=== PATIENT | male | born 1955 | race Caucasian/White ===

== ENCOUNTER 2017-11-23 01:26 | Emergency (ER) | payer OTHER ==
[2017-11-23 01:33] VITALS: BP 175/100
[2017-11-23] MEDS ORDERED: LORazepam 2 MG/ML SDV IVPUSH ONE (02:00)
--- NOTE | 2017-11-23 02:13 | EDM.PDOC ---
ED HPI GENERAL MEDICAL PROBLEM - General Chief Complaint: Chest Pain Stated Complaint: CHEST PAIN Time Seen by Provider: 11/23/17 01:28 Source of Information: Reports: Patient, Family History Limitations: Reports: No Limitations - History of Present Illness INITIAL COMMENTS - FREE TEXT/NARRATIVE: This is a 62-year-old male. He abruptly awoke around 12:30 this morning feeling short of breath and having some chest tightness. He has a history of anxiety reactions and thought he might be having some heart trouble so he comes to the ER for evaluation. He states he forgot to wear his CPAP this evening when he fell asleep. Apparently he's had one anxiety attack this week which is somewhat unusual for him since he hasn't had any for quite some time while he is on the Ativan. When he woke he felt tightness in his chest that seemed to go into the left shoulder but did not go down the arms did not go into the neck or the jaw was. He had no nausea and vomiting he was not sweating. He did take an Ativan 1 mg at home and then comes to the ER. He says he still has some mild tightness in his chest and that he just doesn't feel right. He is no longer short of breath. He does have a history of a recent cough and sinus drainage but denies any ear pain or sore throat. Bilateral Chest Pain Score (Numeric/FACES): 7 - Related Data Allergies Allergy/AdvReac Type Severity Reaction Status Date / Time No Known Allergies Allergy Verified 11/23/17 01:33 Home Meds: Home Meds Allopurinol [Allopurinol] 300 mg PO DAILY 02/25/16 [History] LORazepam [Ativan] 1 mg PO ASDIRECTED PRN 02/25/16 [History] Losartan [Cozaar] 50 mg PO DAILY 02/25/16 [History] Metoprolol Tartrate [Lopressor] 100 mg PO BID 02/25/16 [History] Multivitamin [Multivitamins] 1 cap PO DAILY 02/25/16 [History] Psyllium Husk [Fiber Therapy] 5 cap PO DAILY 02/25/16 [History] Rosuvastatin [Crestor] 5 mg PO BEDTIME 02/25/16 [History] LORazepam [Ativan] 1 mg PO Q8H PRN #15 tablet 11/23/17 [Rx] Past Medical History HEENT History: Reports: Cataract, Impaired Vision Other HEENT History: Wears glasses Cardiovascular History: Reports: High Cholesterol, Hypertension Respiratory History: Reports: Sleep Apnea Genitourinary History: Reports: Renal Calculus Musculoskeletal History: Reports: Gout Psychiatric History: Reports: Anxiety - Past Surgical History HEENT Surgical History: Reports: Cataract Surgery, Other (See Below) Other HEENT Surgeries/Procedures: Deviated spetum Musculoskeletal Surgical History: Reports: Other (See Below) Other Musculoskeletal Surgeries/Procedures:: Herniated disc Social & Family History - Tobacco Use Smoking Status *Q: Never Smoker - Recreational Drug Use Recreational Drug Use: No ED ROS GENERAL - Review of Systems Review Of Systems: See Below Constitutional: Denies: Fever, Chills HEENT: Reports: Sinus Problem Respiratory: Reports: Cough. Denies: Shortness of Breath, Wheezing Cardiovascular: Reports: Chest Pain, Other (He has some chronic slight swelling in his ankles bilaterally by the end of the day) Endocrine: Reports: No Symptoms GI/Abdominal: Denies: Abdominal Pain, Nausea, Vomiting : Reports: No Symptoms Musculoskeletal: Reports: No Symptoms Skin: Reports: No Symptoms Neurological: Reports: No Symptoms Psychiatric: Reports: Anxiety Hematologic/Lymphatic: Reports: No Symptoms ED EXAM, GENERAL - Physical Exam Exam: See Below Exam Limited By: No Limitations General Appearance: Alert, WD/WN, No Apparent Distress Eye Exam: Bilateral Eye: Normal Inspection Ears: Normal External Exam, Normal Canal, Normal TMs Nose: Normal Inspection Throat/Mouth: Normal Inspection, Normal Lips, Normal Voice, No Airway Compromise , Other (Tacky mucous membranes) Head: Normocephalic Neck: Supple Respiratory/Chest: No Respiratory Distress, Lungs Clear, Normal Breath Sounds Cardiovascular: Regular Rate, Rhythm, No Murmur GI/Abdominal: Soft, Non-Tender Back Exam: Full Range of Motion Extremities: Normal Inspection, Normal Range of Motion, Other (He does have some slight swelling in his lower legs and ankles that he states is normal for him by the end of the day). No: No Pedal Edema Neurological: Alert, Oriented. No: Confused Psychiatric: Normal Affect, Normal Mood. No: Anxious Skin Exam: Warm, Dry EKG INTERPRETATION EKG Date: 11/23/17 Time: 01:41 EKG Interpretation Comments: He is noted to have a sinus rhythm with bradycardia rate of about 56, there is no acute ST or T-wave changes no acute ST elevation and there is no ischemia noted Course - Vital Signs Last Recorded V/S: Last Vital Signs Temp 98.4 F 11/23/17 01:28 Pulse 62 11/23/17 01:28 Resp 18 11/23/17 01:28 BP 175/100 H 11/23/17 01:28 Pulse Ox 96 11/23/17 01:28 - Orders/Labs/Meds Orders: Active Orders 24 hr Category Date Time Status EKG 12 Lead [EKG Documentation Completion] [RC] STAT Care 11/23/17 01:59 Active CXR [Chest 1V Frontal] [CR] Stat Exams 11/23/17 01:59 Taken Labs: Laboratory Tests 11/23/17 11/23/17 Range/Units 01:33 01:33 WBC 6.15 (4.23-9.07) K/mm3 RBC 5.16 (4.63-6.08) M/mm3 Hgb 15.4 (13.7-17.5) gm/L Hct 44.4 (40.1-51.0) % MCV 86.0 (79.0-92.2) fl MCH 29.8 (25.7-32.2) pg MCHC 34.7 (32.2-35.5) g/dl RDW Std Deviation 40.5 (35.1-43.9) fL Plt Count 202 (163-337) K/mm3 MPV 10.7 (9.4-12.3) fl Neut % (Auto) 46.6 (34.0-67.9) % Lymph % (Auto) 35.4 (21.8-53.1) % [place] % (Auto) 12.7 H (5.3-12.2) % Eos % (Auto) 4.4 (0.8-7.0) Baso % (Auto) 0.7 (0.1-1.2) % Neut # (Auto) 2.87 (1.78-5.38) K/mm3 Lymph # (Auto) 2.18 (1.32-3.57) K/mm3 [place] # (Auto) 0.78 (0.30-0.82) K/mm3 Eos # (Auto) 0.27 (0.04-0.54) K/mm3 Baso # (Auto) 0.04 (0.01-0.08) K/mm3 Sodium 143 (136-145) mEq/L Potassium 3.9 (3.5-5.1) mEq/L Chloride 106 (98-107) mEq/L Carbon Dioxide 24 (21-32) mEq/L Anion Gap 16.9 H (5-15) BUN 21 H (7-18) mg/dL Creatinine 1.1 (0.7-1.3) mg/dL Est Cr Clr Drug Dosing 65.64 mL/min Estimated GFR (MDRD) > 60 (>60) mL/min BUN/Creatinine Ratio 19.1 H (14-18) Glucose 139 H (80-115) mg/dL Calcium 9.1 (8.5-10.1) mg/dL Total Bilirubin 0.3 (0.2-1.0) mg/dL AST 19 (15-37) U/L ALT 43 (16-63) U/L Alkaline Phosphatase 66 (46-116) U/L Troponin I < 0.017 (0.00-0.056) ng/mL Total Protein 7.1 (6.4-8.2) g/dl Albumin 3.7 (3.4-5.0) g/dl Globulin 3.4 gm/dL Albumin/Globulin Ratio 1.1 (1-2) Meds: Medications Discontinued Medications Generic Name Dose Route Start Last Admin Trade Name Freq PRN Reason Stop Dose Admin Lorazepam 0.5 mg 11/23/17 02:00 11/23/17 02:06 Ativan IVPUSH 11/23/17 02:01 0.5 mg ONETIME ONE Administration - Radiology Interpretation Free Text/Narrative:: Chest x-ray does not show any acute changes though it's not a great inspiratory film. - Re-Assessments/Exams Free Text/Narrative Re-Assessment/Exam: 11/23/17 03:01 I spoke to the patient and the regarding the normal lab values and chest x- ray and EKG. He is searching for a family doctor and took his last Ativan today. I will provide a few Ativan in the interim until he can find a family physician. 11/23/17 03:05 Patient is feeling fine now and wants to go home. The additional Ativan IV resolved his anxiety and all the chest symptoms. Departure - Departure Time of Disposition: 03:02 Disposition: Home, Self-Care 01 Condition: Good Clinical Impression: Atypical chest pain, Obstructive sleep apnea Anxiety disorder Qualifiers: Anxiety disorder type: unspecified anxiety disorder Qualified Code(s): F41.9 - Anxiety disorder, unspecified Prescriptions: LORazepam [Ativan] 1 mg PO Q8H PRN #15 tablet PRN Reason: Anxiety Referrals: PCP,None [Primary Care Provider] - Forms: ED Department Discharge Additional Instructions: Use the Ativan as needed for anxiety, find yourself a family physician in the next couple of weeks for continued monitoring and refill of your medications, return to the ER if needed - My Orders Last 24 Hours: My Active Orders 11/23/17 01:59 EKG 12 Lead [EKG Documentation Completion] [RC] STAT CXR [Chest 1V Frontal] [CR] Stat - Assessment/Plan Last 24 Hours: My Active Orders 11/23/17 01:59 EKG 12 Lead [EKG Documentation Completion] [RC] STAT CXR [Chest 1V Frontal] [CR] Stat
--- NOTE | 2017-11-23 16:00 | CR ---
Chest: Portable view of the chest was obtained. Comparison: Prior chest x-ray of 10/03/16. Heart size is normal. Tortuous thoracic aorta is seen. Lungs are clear. Bony structures are grossly intact. Impression: 1. Nothing acute is identified on portable chest x-ray. Diagnostic code #1
== END 2017-11-23 03:17 | disposition home or self-care (01) ==
LOC: JD.ED 01:26
DX: F41.9 Anxiety disorder, unspecified (principal); R07.89 Other chest pain; G47.33 Obstructive sleep apnea (adult) (pediatric); I10 Essential (primary) hypertension; E78.00 Pure hypercholesterolemia, unspecified; Z79.899 Other long term (current) drug therapy
CPT/HCPCS: 36415; 71045; 80053; 84484; 85025; 93005; 96374; 99285; J2060; 99284-25

== ENCOUNTER 2018-02-05 08:09 | Day surgery (SDC) | payer OTHER ==
--- NOTE | 2018-02-05 08:03 | PCM.PREANE ---
Preanesthetic Assessment - Anesthesia/Transfusion/Family Hx Anesthesia History: Prior Anesthesia Without Reaction Family History of Anesthesia Reaction: No Transfusion History: No Prior Transfusion(s) Intubation History: Unknown - Review of Systems Pulmonary: No Symptoms (VICKI) Cardiovascular: No Symptoms (HTN) Gastrointestinal: No Symptoms (GERD) Neurological: No Symptoms (history of lower back surgery) Other: Reports: Easy Bleeding (rectal bleeding history), Sinus Problem ( allergic rhinitis), Anxiety - Physical Assessment NPO Status Date: 02/04/18 Mental Status: Alert & Oriented x3 - Allergies Allergies/Adverse Reactions: Allergies Allergy/AdvReac Type Severity Reaction Status Date / Time No Known Allergies Allergy Verified 11/23/17 01:33 - Anesthesia Plan Pre-Op Medication Ordered: Beta Emily Beta Emily: Metoprolol Med Last Dose Date: 02/05/18 - Acknowledgements Anesthesia Type Planned: MAC Pt an Appropriate Candidate for the Planned Anesthesia: Yes Alternatives and Risks of Anesthesia Discussed w Pt/Guardian: Yes Pt/Guardian Understands and Agrees with Anesthesia Plan: Yes PreAnesthesia Questionnaire HEENT History: Reports: Cataract, Impaired Vision Other HEENT History: Wears glasses Cardiovascular History: Reports: High Cholesterol, Hypertension Respiratory History: Reports: Sleep Apnea, Other (See Below) Other Respiratory History: cough, bronchitis Gastrointestinal History: Reports: GERD, Hemorrhoids Genitourinary History: Reports: Renal Calculus, Other (See Below) Other Genitourinary History: Erectile dysfunction, frequency, right kidney stone , vasectomy EQUIPMENT ENGINEER History: Reports: None Musculoskeletal History: Reports: Gout Neurological History: Reports: Other (See Below) Other Neuro History: low back surgery [id number] Psychiatric History: Reports: Anxiety Endocrine/Metabolic History: Reports: Vitamin D Deficiency Hematologic History: Reports: None Immunologic History: Reports: None Oncologic (Cancer) History: Reports: None Dermatologic History: Reports: Other (See Below) Other Dermatologic History: actinic keratosis, abcess - Past Surgical History Head Surgeries/Procedures: Reports: None HEENT Surgical History: Reports: Cataract Surgery, Naso-Sinus Surgery, Other ( See Below) Other HEENT Surgeries/Procedures: Deviated spetum Cardiovascular Surgical History: Reports: None Respiratory Surgical History: Reports: None GI Surgical History: Reports: Colonoscopy Male Surgical History: Reports: Vasectomy Endocrine Surgical History: Reports: None Neurological Surgical History: Reports: None Musculoskeletal Surgical History: Reports: Other (See Below) Other Musculoskeletal Surgeries/Procedures:: Herniated disc Oncologic Surgical History: Reports: None - SUBSTANCE USE Smoking Status *Q: Never Smoker Recreational Drug Use History: No - HOME MEDS Home Medications: Home Meds Allopurinol 300 mg PO DAILY 02/25/16 [History] Losartan [Cozaar] 50 mg PO DAILY 02/25/16 [History] Metoprolol Tartrate [Lopressor] 50 mg PO BID 02/25/16 [History] Multivitamin [Multivitamins] 1 cap PO DAILY 02/25/16 [History] Psyllium Husk [Fiber Therapy] 5 cap PO DAILY 02/25/16 [History] Rosuvastatin [Crestor] 5 mg PO BEDTIME 02/25/16 [History] LORazepam [Ativan] 1 mg PO Q8H PRN #15 tablet 11/23/17 [Rx] PARoxetine HCl [Paroxetine HCl] 10 mg PO DAILY 02/04/18 [History] Ranitidine HCl [Zantac] 150 mg PO BID 02/04/18 [History] - CURRENT (IN HOUSE) MEDS Current Meds: Current Medications Lactated Ringer's (Ringers, Lactated) 1,000 mls @ 125 mls/hr IV ASDIRECTED RACHEAL Stop: 02/05/18 23:00 Lidocaine/Sodium Bicarbonate (Buffered Lidocaine 1% In Ns 8.4%) 0.25 ml IDERM ONETIME PRN PRN Reason: Prior to IV Start Stop: 02/05/18 18:00 Sodium Chloride (Saline Flush) 10 ml FLUSH ASDIRECTED PRN PRN Reason: Keep Vein Open Stop: 02/05/18 18:00
[~2018-02-05 08:09] MED LIST: Lactated Ringers 1,000 ML IV SCH; Lidocaine 1%/Sod Bicarbonate in NS 8.4% 1 ML Syringe IDERM PRN; Sodium Chloride 0.9% 10 ML Syringe FLUSH PRN
[2018-02-05] MEDS ORDERED: Propofol 200 MG/20 ML SDV ONE ×2 (08:21→08:33)
[2018-02-05] MEDS ORDERED: fentaNYL 100 MCG/2 ML SDV ONE (08:22)
--- NOTE | 2018-02-05 08:45 | PCM.PREANE ---
Preanesthetic Assessment - Anesthesia/Transfusion/Family Hx Anesthesia History: Prior Anesthesia Without Reaction Family History of Anesthesia Reaction: No Transfusion History: No Prior Transfusion(s) Intubation History: Unknown - Review of Systems General: No Symptoms Pulmonary: No Symptoms Cardiovascular: No Symptoms Gastrointestinal: No Symptoms Neurological: No Symptoms Other: Reports: Easy Bleeding (rectal bleeding history), Sinus Problem ( allergic rhinitis), Anxiety - Physical Assessment NPO Status Date: 02/03/18 NPO Status Time: 18:00 Pulse: 76 O2 Sat by Pulse Oximetry: 96 Respiratory Rate: 16 Blood Pressure: 141/86 Temperature: 36.4 C Height: 1.73 m Weight: 120 kg ASA Class: 3 Mental Status: Alert & Oriented x3 Airway Class: Mallampati = 1 Dentition: Reports: Normal Dentition, [place](s) Thyro-Mental Finger Breadths: 2 Mouth Opening Finger Breadths: 3 ROM/Head Extension: Full Lungs: Clear to Auscultation, Normal Respiratory Effort Cardiovascular: Regular Rate, Regular Rhythm, No Murmurs - Allergies Allergies/Adverse Reactions: Allergies Allergy/AdvReac Type Severity Reaction Status Date / Time No Known Allergies Allergy Verified 11/23/17 01:33 - Blood Blood Available: No Product(s) Available: None - Anesthesia Plan Pre-Op Medication Ordered: None Med Last Dose Date: 02/04/18 Med Last Dose Time: 08:00 - Acknowledgements Anesthesia Type Planned: MAC Pt an Appropriate Candidate for the Planned Anesthesia: Yes Alternatives and Risks of Anesthesia Discussed w Pt/Guardian: Yes Pt/Guardian Understands and Agrees with Anesthesia Plan: Yes PreAnesthesia Questionnaire HEENT History: Reports: Cataract, Impaired Vision Other HEENT History: Wears glasses Cardiovascular History: Reports: High Cholesterol, Hypertension Respiratory History: Reports: Sleep Apnea, Other (See Below) Other Respiratory History: cough, bronchitis Gastrointestinal History: Reports: GERD, Hemorrhoids Genitourinary History: Reports: Renal Calculus, Other (See Below) Other Genitourinary History: Erectile dysfunction, frequency, right kidney stone , vasectomy CONSUMER SERVICES CONSULTANT History: Reports: None Musculoskeletal History: Reports: Gout Neurological History: Reports: Other (See Below) Other Neuro History: low back surgery L3L4 Psychiatric History: Reports: Anxiety Endocrine/Metabolic History: Reports: Vitamin D Deficiency Hematologic History: Reports: None Immunologic History: Reports: None Oncologic (Cancer) History: Reports: None Dermatologic History: Reports: Other (See Below) Other Dermatologic History: actinic keratosis, abcess - Past Surgical History Head Surgeries/Procedures: Reports: None HEENT Surgical History: Reports: Cataract Surgery, Naso-Sinus Surgery, Other ( See Below) Other HEENT Surgeries/Procedures: Deviated spetum Cardiovascular Surgical History: Reports: None Respiratory Surgical History: Reports: None GI Surgical History: Reports: Colonoscopy Male Surgical History: Reports: Vasectomy Endocrine Surgical History: Reports: None Neurological Surgical History: Reports: None Musculoskeletal Surgical History: Reports: Other (See Below) Other Musculoskeletal Surgeries/Procedures:: Herniated disc Oncologic Surgical History: Reports: None - SUBSTANCE USE Smoking Status *Q: Never Smoker Tobacco Use Within Last Twelve Months: No Second Hand Smoke Exposure: No Days Per Week of Alcohol Use: 0 Number of Drinks Per Day: 0 Total Drinks Per Week: 0 Recreational Drug Use History: No - HOME MEDS Home Medications: Home Meds Allopurinol 300 mg PO DAILY 02/25/16 [History] Losartan [Cozaar] 50 mg PO DAILY 02/25/16 [History] Metoprolol Tartrate [Lopressor] 50 mg PO BID 02/25/16 [History] Multivitamin [Multivitamins] 1 cap PO DAILY 02/25/16 [History] Psyllium Husk [Fiber Therapy] 5 cap PO DAILY 02/25/16 [History] Rosuvastatin [Crestor] 5 mg PO BEDTIME 02/25/16 [History] LORazepam [Ativan] 1 mg PO Q8H PRN #15 tablet 11/23/17 [Rx] PARoxetine HCl [Paroxetine HCl] 10 mg PO DAILY 02/04/18 [History] Ranitidine HCl [Zantac] 150 mg PO BID 02/04/18 [History] - CURRENT (IN HOUSE) MEDS Current Meds: Current Medications Lactated Ringer's (Ringers, Lactated) 1,000 mls @ 125 mls/hr IV ASDIRECTED RACHEAL Stop: 02/05/18 23:00 Lidocaine/Sodium Bicarbonate (Buffered Lidocaine 1% In Ns 8.4%) 0.25 ml IDERM ONETIME PRN PRN Reason: Prior to IV Start Stop: 02/05/18 18:00 Sodium Chloride (Saline Flush) 10 ml FLUSH ASDIRECTED PRN PRN Reason: Keep Vein Open Stop: 02/05/18 18:00 Discontinued Medications Fentanyl (Sublimaze) Confirm Administered Dose 100 mcg .ROUTE .STK-MED ONE Stop: 02/05/18 08:23 Propofol (Diprivan 20 Ml) Confirm Administered Dose 200 mg .ROUTE .STK-MED ONE Stop: 02/05/18 08:22 Propofol (Diprivan 20 Ml) Confirm Administered Dose 200 mg .ROUTE .STK-MED ONE Stop: 02/05/18 08:34
--- NOTE | 2018-02-05 09:28 | PCM.OPNOTE ---
- General Post-Op/Procedure Note Date of Surgery/Procedure: 02/05/18 Operative Procedure(s): Colonoscopy with descending colonic polypectomy and random rectal biopsy Findings: 1. Diminutive rectal polyp at 60 cm from the anal verge about 5 mm in diameter 2. Uncomplicated external and internal hemorrhoids Pre Op Diagnosis: Rectal bleeding and intermittent changes in bowel habits Post-Op Diagnosis: 1. Internal and external hemorrhoids Anesthesia Technique: MAC, Moderate Sedation Primary Surgeon: Tao Clay Pathology: Descending colon polyp and random rectal biopsy EBL in mLs: 0 Complications: None Condition: Good Free Text/Narrative:: After adequate IV sedation and analgesia was obtained the patient was placed on his left side with monitoring. Perianal inspection revealed external hemorrhoids. Digital rectal examination was otherwise unremarkable. The prostate had no nodules. A lubricated colonoscope was inserted into the rectum then advanced under direct vision with air insufflation as necessary and abdominal pressure to reach the cecum. The bowel preparation was adequate. The cecum right colon and transverse colons were endoscopically normal with no mass lesions or inflammatory changes seen. The descending colon at 60 cm had a small polyp which was removed and retrieved with the cold forceps. The sigmoid was unremarkable with no diverticuli or mass lesions. The rectum in both views was only remarkable for the uncomplicated small internal hemorrhoids in the retroflexed view. But given his history of occasional watery stools I performed a random biopsy of the rectum for pathologic evaluation. Air was removed as I finished the procedure which he tolerated well. Cuff Stitcher photographs were taken for the patient and for the medical record.
[2018-02-05 09:30] VITALS: BP 152/102
--- NOTE | 2018-02-05 09:30 | PCM48HPAN ---
Post Anesthesia Note - EVALUATION WITHIN 48HRS OF ANESTHETIC Vital Signs in Normal Range: Yes Patient Participated in Evaluation: Yes Respiratory Function Stable: Yes Airway Patent: Yes Cardiovascular Function Stable: Yes Hydration Status Stable: Yes Pain Control Satisfactory: Yes Nausea and Vomiting Control Satisfactory: Yes Mental Status Recovered: Yes Pulse Rate: 67 SaO2: 95 Resp Rate: 16 Temperature: 97.8 F Blood Pressure: 152/102
== END 2018-02-05 10:25 | disposition home or self-care (01) ==
LOC: JD.SDS 08:09
PROVIDERS: ATTEND Surgery
DX: D12.4 Benign neoplasm of descending colon (principal); K64.8 Other hemorrhoids; K64.4 Residual hemorrhoidal skin tags; I10 Essential (primary) hypertension; G47.33 Obstructive sleep apnea (adult) (pediatric); K21.9 Gastro-esophageal reflux disease without esophagitis; E78.00 Pure hypercholesterolemia, unspecified; E55.9 Vitamin D deficiency, unspecified; Z98.890 Other specified postprocedural states; Z79.899 Other long term (current) drug therapy
CPT/HCPCS: 45380; J3010; J7120; 00811; 88305; J2704

== ENCOUNTER 2020-09-21 17:07 | Emergency (ER) | payer MEDICARE, OTHER ==
[2020-09-21 17:44] VITALS: BP 173/100; PULSE 75
[2020-09-21] MEDS ORDERED: Sodium Chloride 0.9% 1,000 ML IV STA (18:08)
[2020-09-21] MEDS ORDERED: Ketorolac 30 MG/ML SDV IVPUSH ONE (18:08)
[2020-09-21] MEDS ORDERED: Ondansetron 4 MG/2 ML SDV IVPUSH ONE (18:08)
[2020-09-21] MEDS ORDERED: HYDROmorphone 0.5 MG/0.5 ML Syringe IVPUSH ONE (18:08)
--- NOTE | 2020-09-21 18:26 | EDM.PDOC ---
ED HPI GENERAL MEDICAL PROBLEM - General Chief Complaint: Flank Pain Stated Complaint: LT SIDE FLANK PAIN Time Seen by Provider: 09/21/20 17:55 Source of Information: Reports: Patient, RN Notes Reviewed History Limitations: Reports: No Limitations - History of Present Illness INITIAL COMMENTS - FREE TEXT/NARRATIVE: Patient is a 65-year-old male presenting to the emergency department with acute onset of left-sided flank pain radiating down to left lower quadrant of his abdomen. Symptoms started around noon today. He has had some mild nausea associated with it but no vomiting. Denies any fever but states he has felt chilled. Patient has a history of kidney stones and states that this feels similar to his previous episodes, however the radiation into his left lower reinaldo drant of his abdomen is more significant than he remembers in the past. Denies any history of diverticulitis. He had a large bowel movement yesterday, but states he is on without a small amount today. Denies any blood in his stool or visible blood in his urine. Left Flank Pain Score (Numeric/FACES): 8 - Related Data Allergies Allergy/AdvReac Type Severity Reaction Status Date / Time No Known Allergies Allergy Verified 09/21/20 17:44 Home Meds: Home Meds Losartan [Cozaar] 50 mg PO DAILY 02/25/16 [History] Metoprolol Tartrate [Lopressor] 50 mg PO BID 02/25/16 [History] Multivitamin [Multivitamins] 1 cap PO DAILY 02/25/16 [History] Psyllium Husk [Fiber Therapy] 5 cap PO DAILY 02/25/16 [History] Rosuvastatin [Crestor] 5 mg PO BEDTIME 02/25/16 [History] allopurinoL [Allopurinol] 300 mg PO DAILY 02/25/16 [History] LORazepam [Ativan] 1 mg PO Q8H PRN #15 tablet 11/23/17 [Rx] PARoxetine HCL [Paroxetine HCl] 10 mg PO DAILY 02/04/18 [History] Ranitidine HCl [Zantac] 150 mg PO BID 02/04/18 [History] Past Medical History HEENT History: Reports: Cataract, Impaired Vision Other HEENT History: Wears glasses Cardiovascular History: Reports: High Cholesterol, Hypertension Respiratory History: Reports: Sleep Apnea, Other (See Below) Other Respiratory History: cough, bronchitis Gastrointestinal History: Reports: GERD, Hemorrhoids Genitourinary History: Reports: Renal Calculus, Other (See Below) Other Genitourinary History: Erectile dysfunction, frequency, right kidney stone, vasectomy COMPUTATIONAL PHYSICIST History: Reports: None Musculoskeletal History: Reports: Gout Neurological History: Reports: Other (See Below) Other Neuro History: low back surgery [id number] Psychiatric History: Reports: Anxiety Endocrine/Metabolic History: Reports: Vitamin D Deficiency Hematologic History: Reports: None Immunologic History: Reports: None Oncologic (Cancer) History: Reports: None Dermatologic History: Reports: Other (See Below) Other Dermatologic History: actinic keratosis, abcess - Past Surgical History Head Surgeries/Procedures: Reports: None HEENT Surgical History: Reports: Cataract Surgery, Naso-Sinus Surgery, Other (See Below) Other HEENT Surgeries/Procedures: Deviated spetum Cardiovascular Surgical History: Reports: None Respiratory Surgical History: Reports: None GI Surgical History: Reports: Colonoscopy Male Surgical History: Reports: Vasectomy Endocrine Surgical History: Reports: None Neurological Surgical History: Reports: None Musculoskeletal Surgical History: Reports: Other (See Below) Other Musculoskeletal Surgeries/Procedures:: Herniated disc Oncologic Surgical History: Reports: None Social & Family History - Tobacco Use Tobacco Use Status *Q: Never Tobacco User Second Hand Smoke Exposure: No - Caffeine Use Caffeine Use: Reports: None - Recreational Drug Use Recreational Drug Use: No ED ROS GENERAL - Review of Systems Review Of Systems: See Below Constitutional: Reports: Chills. Denies: Fever HEENT: Reports: No Symptoms Respiratory: Reports: No Symptoms Cardiovascular: Reports: No Symptoms Endocrine: Reports: No Symptoms GI/Abdominal: Reports: Abdominal Pain (Left lower quadrant), Nausea. Denies: Vomiting : Reports: Flank Pain. Denies: Hematuria Musculoskeletal: Reports: No Symptoms Skin: Reports: No Symptoms Neurological: Reports: No Symptoms Psychiatric: Reports: No Symptoms Hematologic/Lymphatic: Reports: No Symptoms Immunologic: Reports: No Symptoms ED EXAM, RENAL/ - Physical Exam Exam: See Below General Appearance: Alert, WD/WN, No Apparent Distress Respiratory/Chest: No Respiratory Distress, Lungs Clear, Normal Breath Sounds, No Accessory Muscle Use, Chest Non-Tender Cardiovascular: Normal Peripheral Pulses, Regular Rate, Rhythm, No Edema, No Gallop, No JVD, No Murmur, No Rub GI/Abdominal: Normal Bowel Sounds, Soft, No Organomegaly, No Distention, No Abnormal Bruit, No Mass, Tender (Mild left lower quadrant) Back Exam: Normal Inspection, Full Range of Motion, CVA Tenderness (L). No: CVA Tenderness (R) Neurological: Alert, Oriented, CN II-XII Intact, Normal Cognition, Normal Gait, Normal Reflexes, No Motor/Sensory Deficits Psychiatric: Normal Affect, Normal Mood Skin Exam: Warm, Dry, Intact, Normal Color, No Rash Course - Vital Signs Last Recorded V/S: Last Vital Signs Temp 97.7 F 09/21/20 17:40 Pulse 75 09/21/20 17:40 Resp 20 09/21/20 17:40 BP 173/100 H 09/21/20 17:40 Pulse Ox 95 09/21/20 17:40 - Orders/Labs/Meds Orders: Active Orders 24 hr Category Date Time Status Abdomen Pelvis wo Cont [CT] Stat Exams 09/21/20 18:07 Taken UA W/MICROSCOPIC [URIN] Stat Lab 09/21/20 18:00 Received Labs: Laboratory Tests 09/21/20 09/21/20 09/21/20 Range/Units 18:00 18:25 18:25 WBC 6.98 (4.23-9.07) K/mm3 RBC 4.82 (4.63-6.08) M/mm3 Hgb 14.8 (13.7-17.5) gm/dl Hct 43.0 (40.1-51.0) % MCV 89.2 (79.0-92.2) fl MCH 30.7 (25.7-32.2) pg MCHC 34.4 (32.2-35.5) g/dl RDW Std Deviation 42.1 (35.1-43.9) fL Plt Count 166 (163-337) K/mm3 MPV 10.6 (9.4-12.3) fl Neut % (Auto) 89.0 H (34.0-67.9) % Lymph % (Auto) 5.3 L (21.8-53.1) % [place] % (Auto) 4.3 L (5.3-12.2) % Eos % (Auto) 1.0 (0.8-7.0) Baso % (Auto) 0.3 (0.1-1.2) % Neut # (Auto) 6.21 H (1.78-5.38) K/mm3 Lymph # (Auto) 0.37 L (1.32-3.57) K/mm3 [place] # (Auto) 0.30 (0.30-0.82) K/mm3 Eos # (Auto) 0.07 (0.04-0.54) K/mm3 Baso # (Auto) 0.02 (0.01-0.08) K/mm3 Manual Slide Review Abnormal smear Sodium 139 (136-145) mEq/L Potassium 3.8 (3.5-5.1) mEq/L Chloride 103 (98-107) mEq/L Carbon Dioxide 29 (21-32) mEq/L Anion Gap 10.8 (5-15) BUN 16 (7-18) mg/dL Creatinine 1.3 (0.7-1.3) mg/dL Est Cr Clr Drug Dosing 53.35 mL/min Estimated GFR (MDRD) 55 (>60) mL/min BUN/Creatinine Ratio 12.3 L (14-18) Glucose 149 H (80-115) mg/dL Calcium 8.6 (8.5-10.1) mg/dL Total Bilirubin 0.9 (0.2-1.0) mg/dL AST 14 L (15-37) U/L ALT 8 L (16-63) U/L Alkaline Phosphatase 62 (46-116) U/L C-Reactive Protein 0.5 (<1.0) mg/dL Total Protein 7.0 (6.4-8.2) g/dl Albumin 3.8 (3.4-5.0) g/dl Globulin 3.2 gm/dL Albumin/Globulin Ratio 1.2 (1-2) Urine Color Yellow (Yellow) Urine Appearance Slt cloudy H (Clear) Urine pH 7.5 (5.0-8.0) Ur Specific [place] 1.025 (1.005-1.030) Urine Protein Negative (Negative) Urine Glucose (UA) Negative (Negative) Urine Ketones Trace H (Negative) Urine Occult Blood Negative (Negative) Urine Nitrite Negative (Negative) Urine Bilirubin Negative (Negative) Urine Urobilinogen 0.2 (0.2-1.0) Ur Leukocyte Esterase Negative (Negative) Meds: Medications Discontinued Medications Generic Name Dose Route Start Last Admin Trade Name Freq PRN Reason Stop Dose Admin Hydromorphone HCl 0.5 mg 09/21/20 18:08 09/21/20 18:30 Dilaudid IVPUSH 09/21/20 18:09 0.5 mg ONETIME ONE Administration Sodium Chloride 1,000 mls @ 999 mls/hr 09/21/20 18:08 09/21/20 18:29 Normal Saline IV 09/21/20 19:08 999 mls/hr NOW STA Administration Ketorolac Tromethamine 30 mg 09/21/20 18:08 09/21/20 18:29 Toradol IVPUSH 09/21/20 18:09 30 mg ONETIME ONE Administration Ondansetron HCl 4 mg 09/21/20 18:08 09/21/20 18:29 Zofran IVPUSH 09/21/20 18:09 4 mg ONETIME ONE Administration - Re-Assessments/Exams Free Text/Narrative Re-Assessment/Exam: 09/21/20 19:41 CT scan shows a 7 mm calculus proximal left ureter with moderate left hydronephrosis. Tiny 2 mm nodule at the anterior right lung base. Recommendation if patient is low risk and no routine follow-up is needed. Patient has no history of smoking, therefore no follow-up is indicated on this. Patient's pain has improved with the medications given. Urinalysis was completely negative for blood and signs of infection. Discussed with patient that due to the size of the stone, he may not be able to pass this on his own. We will give him a prescription for Zofran for nausea, Percocet for pain, and Flomax. Recommend that he start straining his urine. I will send a referral to Dr. Leger, urologist. Recommend he call tomorrow to set up an appointment. Discharge instructions as documented. Departure - Departure Time of Disposition: 19:43 Disposition: Home, Self-Care 01 Condition: Good Clinical Impression: Kidney stone - Discharge Information *PRESCRIPTION DRUG MONITORING PROGRAM REVIEWED*: Yes *COPY OF PRESCRIPTION DRUG MONITORING REPORT IN PATIENT RICARDA: No Instructions: Kidney Stones Referrals: Haley Bazzi MD [Primary Care Provider] - Prakash Leger MD [Ordering Only Provider] - Forms: ED Department Discharge Additional Instructions: You were seen in the emergency department today for left-sided flank pain that began earlier today. Work-up was completed and included blood work, urinalysis, and a CT scan of your abdomen pelvis. Results of the work-up yielded a 7 mm left-sided kidney stone. As we discussed, given the size, it is possible that she will not be able to pass this on your own. You have been prescribed Zofran for nausea, Percocet for pain, and Flomax to help facilitate passage of the stone. Recommend that you strain your urine each time you go to look for passage of the stone. I have sent a referral to Dr. Leger,, urologist, at [facility] in [place]. Recommend that you call his office tomorrow morning to set up an appointment for evaluation. If you experience any new or worsening symptoms of concern, please do not hesitate to return to the emergency department. Sepsis Event Note (ED) - Evaluation Sepsis Screening Result: No Definite Risk - Focused Exam Vital Signs: Vital Signs Temp Pulse Resp BP Pulse Ox 09/21/20 17:40 97.7 F 75 20 173/100 H 95 - My Orders Last 24 Hours: My Active Orders 09/21/20 18:00 UA W/MICROSCOPIC [URIN] Stat 09/21/20 18:07 Abdomen Pelvis wo Cont [CT] Stat - Assessment/Plan Last 24 Hours: My Active Orders 09/21/20 18:00 UA W/MICROSCOPIC [URIN] Stat 09/21/20 18:07 Abdomen Pelvis wo Cont [CT] Stat
--- NOTE | 2020-09-22 08:55 | CT ---
PROCEDURE INFORMATION: Exam: CT Abdomen And Pelvis Without Contrast Exam date and time: 09/21/2020 6:17 PM Age: 65 years old Clinical indication: Abdominal pain; Flank; Left lower quadrant (llq); Patient HX: HX of kidney stones TECHNIQUE: Imaging protocol: Computed tomography of the abdomen and pelvis without contrast. COMPARISON: CT Abdomen Pelvis wo Cont 02/23/2016 3:36 PM FINDINGS: Lungs: Dependent atelectasis at the lung bases. Tiny 2 mm nodule at the anterior right lung base, seen on image 5, series 2. Liver: Tiny calcification right lobe of liver. Gallbladder and bile ducts: Normal. No calcified stones. No ductal dilation. Pancreas: Normal. No ductal dilation. Spleen: Normal. No splenomegaly. Adrenal glands: Normal. No mass. Kidneys and ureters: Right lower pole renal cyst. 7 mm calculus proximal left ureter with moderate left hydronephrosis. There is moderate left perinephric stranding. Stomach and bowel: Few scattered colonic diverticula. The stomach is moderately distended with debris. Appendix: No evidence of appendicitis. Intraperitoneal space: Unremarkable. No free air. No significant fluid collection. Vasculature: Minimal atherosclerotic changes of the abdominal aorta. Lymph nodes: Some mild central mesenteric stranding with a few small lymph nodes may represent a component of mesenteric panniculitis. Urinary bladder: Unremarkable as visualized. Reproductive: Prostate gland is moderately enlarged. Bones/joints: Probable hemangioma of T9. Soft tissues: Small umbilical hernia containing fat. Bilateral inguinal hernias containing fat, left larger than right. Other findings: The lack of intravenous contrast material limits evaluation of the abdominal/pelvic organs. IMPRESSION: 1. 7 mm calculus proximal left ureter with moderate left hydronephrosis. 2. Tiny 2 mm nodule at the anterior right lung base. As per Fleischner Society 2017 guidelines for follow-up and management of solid pulmonary nodules less than 6mm: For patients at low risk (minimal or absent history of smoking and of other known risk factors), No routine followup. For patient at high risk (history of smoking or of other known risk factors), Optional CT at 12 months. 3. See above for other details. COMMENTS: Consistent with the [employer]'s Incidental Findings Committee white paper (J Am Caleb Radiol 2018): Any incidental renal lesion less than 1 cm or classified as too small to characterize, or any incidental cystic renal lesion characterized as simple-appearing, is likely benign. No follow-up imaging is recommended for these lesions per consensus recommendations based on imaging criteria. Thank you for allowing us to participate in the care of your patient. Dictated and Authenticated by: Vern Lujan MD 09/21/2020 8:05 PM Central Time ([place] & [place]) [place]
== END 2020-09-21 19:29 | disposition home or self-care (01) ==
LOC: JD.ED 17:07
DX: N13.2 Hydronephrosis with renal and ureteral calculous obstruction (principal); I10 Essential (primary) hypertension; E78.00 Pure hypercholesterolemia, unspecified; K21.9 Gastro-esophageal reflux disease without esophagitis; M10.9 Gout, unspecified; F41.9 Anxiety disorder, unspecified; Z79.899 Other long term (current) drug therapy
CPT/HCPCS: 36415; 74176; 80053; 81001; 85025; 86140; 96374; 96375; 99284; J1170; J1885; J2405; J7030

== ENCOUNTER 2020-09-23 07:29 | Emergency (ER) | payer MEDICARE, OTHER ==
[2020-09-23] MEDS ORDERED: HYDROmorphone 1 MG/ML Syringe IVPUSH ONE (07:57)
[2020-09-23] MEDS ORDERED: Ondansetron 4 MG/2 ML SDV IVPUSH ONE (07:57)
--- NOTE | 2020-09-23 07:59 | EDM.PDOC ---
ED HPI GENERAL MEDICAL PROBLEM - General Chief Complaint: Abdominal Pain Stated Complaint: L SIDE ABDOMINAL PAIN Time Seen by Provider: 09/23/20 07:52 Source of Information: Reports: Patient History Limitations: Reports: No Limitations - History of Present Illness INITIAL COMMENTS - FREE TEXT/NARRATIVE: 65-year-old male presents to the ED complaining of diffuse left hemiabdominal pain that radiates across the mid abdomen around the umbilicus to the right side of the abdomen. Patient reports he developed a acute left-sided flank pain on September 21. He was seen through the ED and diagnosed with a 7 mm left proximal renal stone. Has been taking narcotics for pain relief since that time. He has not had a bowel movement since September 20. Therefore is not sure if it is the kidney stone causing the pain or constipation. Of note he did vomit twice bilious material this morning. No hematemesis. Still has a feeling of need for frequent voiding. No fever or chills. Onset: Sudden Onset Date: 09/21/20 (Acute onset of left renal colic diagnosed 7 mm proximal left renal stone. Has continued left hemiabdominal pain rating across towards the umbilicus.) Duration: Hour(s):, Constant, Getting Worse, Waxing/Waning Location: Reports: Abdomen, Back (Use left hemiabdominal pain left flank pain) Quality: Reports: Other (Pain causes nausea and vomiting.) Severity: Moderate Improves with: Reports: Medication (And she had improvement with narcotic pain medication.) Worsens with: Reports: None Context: Denies: Activity, Exercise, Lifting, Sick Contact, Trauma, Other Associated Symptoms: Reports: Loss of Appetite, Malaise, Nausea/Vomiting. 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 (see below) Bilateral Abdomen Pain Score (Numeric/FACES): 8 - Related Data Allergies Allergy/AdvReac Type Severity Reaction Status Date / Time No Known Allergies Allergy Verified 09/23/20 07:48 Home Meds: Home Meds Losartan [Cozaar] 50 mg PO DAILY 02/25/16 [History] Multivitamin [Multivitamins] 1 cap PO DAILY 02/25/16 [History] Rosuvastatin [Crestor] 5 mg PO BEDTIME 02/25/16 [History] allopurinoL [Allopurinol] 300 mg PO DAILY 02/25/16 [History] LORazepam [Ativan] 1 mg PO Q8H PRN #15 tablet 11/23/17 [Rx] PARoxetine HCL [Paroxetine HCl] 10 mg PO DAILY 02/04/18 [History] Acetaminophen/HYDROcodone [Lindsay 325-5 MG] 1 tab PO Q4H PRN 09/23/20 [History] Ondansetron [Zofran] 4 mg BUCCAL Q6H PRN #10 tab 09/23/20 [Rx] oxyCODONE HCl/Acetaminophen [Percocet 10-325 mg Tablet] 1 each PO Q4H PRN #20 tablet 09/23/20 [Rx] polyethylene glycoL 3350 [MiraLAX] 17 gm PO DAILY #1 container 09/23/20 [Rx] Past Medical History HEENT History: Reports: Cataract, Impaired Vision Other HEENT History: Wears glasses Cardiovascular History: Reports: High Cholesterol, Hypertension Respiratory History: Reports: Sleep Apnea, Other (See Below) Other Respiratory History: cough, bronchitis Gastrointestinal History: Reports: GERD, Hemorrhoids Genitourinary History: Reports: Renal Calculus, Other (See Below) Other Genitourinary History: Erectile dysfunction, frequency, right kidney stone, vasectomy CHARGE 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 History: Reports: 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 Musculoskeletal History: Reports: Gout Neurological History: Reports: Other (See Below) Other Neuro History: low back surgery [id number] Psychiatric History: Reports: Anxiety, Depression Endocrine/Metabolic History: Reports: Vitamin D Deficiency Hematologic History: Reports: None Immunologic History: Reports: None Oncologic (Cancer) History: Reports: None Dermatologic History: Reports: Other (See Below) Other Dermatologic History: actinic keratosis, abcess - Past Surgical History Head Surgeries/Procedures: Reports: None HEENT Surgical History: Reports: Cataract Surgery, Naso-Sinus Surgery, Other (See Below) Other HEENT Surgeries/Procedures: Deviated spetum Cardiovascular Surgical History: Reports: None Respiratory Surgical History: Reports: None GI Surgical History: Reports: Colonoscopy Male Surgical History: Reports: Vasectomy Endocrine Surgical History: Reports: None Neurological Surgical History: Reports: None Musculoskeletal Surgical History: Reports: Other (See Below) Other Musculoskeletal Surgeries/Procedures:: Herniated disc Oncologic Surgical History: Reports: None Social & Family History - Tobacco Use Tobacco Use Status *Q: Never Tobacco User - Caffeine Use Caffeine Use: Reports: Coffee - Recreational Drug Use Recreational Drug Use: No - Living Situation & Occupation Living situation: Reports: Occupation: Unemployed ED ROS GENERAL - Review of Systems Review Of Systems: See Below Constitutional: Reports: Malaise, Weakness, Fatigue, Decreased Appetite, Other (Insomnia). Denies: Fever, Chills HEENT: Reports: Glasses Respiratory: Reports: No Symptoms Cardiovascular: Reports: No Symptoms Endocrine: Reports: No Symptoms, Fatigue GI/Abdominal: Reports: Abdominal Pain (From disrupted sleep pattern.) : Reports: Frequency ( Diffuse left-sided hemiabdominal pain rating towards the umbilicus and perhaps even the right lower quadrant.). Denies: Dysuria Musculoskeletal: Reports: Back Pain, Joint Pain Skin: Reports: No Symptoms (His hips and low back at times) Neurological: Reports: No Symptoms Psychiatric: Reports: No Symptoms Hematologic/Lymphatic: Reports: No Symptoms Immunologic: Reports: No Symptoms ED EXAM, RENAL/ - Physical Exam Exam: See Below Exam Limited By: No Limitations General Appearance: Alert, WD/WN, Moderate Distress, Other (Temperature is 36.4. Heart rate 69 is sinus respiratory is 19 with O2 sats of 93% room air BP 1 6588.) Eye Exam: Bilateral Eye: Normal Inspection, PERRL Respiratory/Chest: No Respiratory Distress, Lungs Clear, Normal Breath Sounds, No Accessory Muscle Use, Chest Non-Tender Cardiovascular: Normal Peripheral Pulses, Regular Rate, Rhythm, No Edema, No Gallop, No Murmur, No Rub GI/Abdominal: Normal Bowel Sounds, Soft, Non-Tender, No Organomegaly, Distended (Only distended and very minimally tympanic to percussion.), Other. No: Guarding, Rigid, Rebound (Male) Exam: No Hernia Back Exam: Normal Inspection (No surgical scars), Full Range of Motion, CVA Tenderness (L) (Held.) Extremities: Normal Inspection, Normal Range of Motion, Non-Tender, No Pedal Edema Neurological: Alert, Oriented, CN II-XII Intact, Normal Cognition Skin Exam: Warm, Dry, Intact, Normal Color, No Rash Course - Vital Signs Last Recorded V/S: Last Vital Signs Temp 36.4 C 09/23/20 07:45 Pulse 66 09/23/20 09:30 Resp 18 09/23/20 09:30 BP 148/78 H 09/23/20 09:30 Pulse Ox 92 L 09/23/20 09:30 - Orders/Labs/Meds Orders: Active Orders 24 hr Category Date Time Status Sodium Chloride 0.9% [Normal Saline] 1,000 ml Med 09/23/20 08:00 Active IV ASDIRECTED Medication Orders Sodium Chloride (Normal Saline) 1,000 mls @ 150 mls/hr IV ASDIRECTED RACHEAL Last Admin: 09/23/20 08:25 Dose: 150 mls/hr Documented by: RENÉE Meds: Medications Generic Name Dose Route Start Last Admin Trade Name Freq PRN Reason Stop Dose Admin Sodium Chloride 1,000 mls @ 150 mls/hr 09/23/20 08:00 09/23/20 08:25 Normal Saline IV 150 mls/hr ASDIRECTED RACHEAL Administration Discontinued Medications Generic Name Dose Route Start Last Admin Trade Name Freq PRN Reason Stop Dose Admin Hydromorphone HCl 1 mg 09/23/20 07:57 09/23/20 08:24 Dilaudid IVPUSH 09/23/20 07:58 1 mg ONETIME ONE Administration Magnesium Citrate 240 ml 09/23/20 08:57 09/23/20 09:28 Citrate Of Magnesia PO 09/23/20 08:58 240 ml ONETIME ONE Administration Ondansetron HCl 4 mg 09/23/20 07:57 09/23/20 08:24 Zofran IVPUSH 09/23/20 07:58 4 mg ONETIME ONE Administration - Radiology Interpretation Free Text/Narrative:: 65-year-old male presents to the ED with chief complaint of diffuse left flank pain started 2 days ago and identified to be a 7 mm stone in the proximal left ureter. Over 90s developed diffuse left hemiabdominal pain rating towards the umbilicus and perhaps even to the right lower quadrant or across the abdomen. He states he has not had a bowel movement for 4 days due to taking narcotic pain medications. Associated nausea and vomiting with bilious emesis x2 this morning . Current pain is 8 out of 10. Plan IV normal saline at 150 mils per hour. Given Dilaudid 1 mg IV with Zofran 4 mg IV for pain relief. He will have a KUB to establish if there is significant constipation. - Re-Assessments/Exams Free Text/Narrative Re-Assessment/Exam: 09/23/20 08:41 Patient reports his pain is coming under control. KUB has been completed a reveals a large amount of stool throughout the right hemicolon. Minimal stool within the descending colon and rectal vault. There is still a stone present adjacent to the L3 transverse process which does not appear to have changed in position with comparison to recent CT study. On radiograph it measures 1.[address] measured at 7 mm. Patient will have to take magnesium citrate or Citroma 8 ounces by mouth mixed with 6 ounces of juice of choice to provide bowel cleanse. This will be given to him today at home at time of discharge. 09/23/20 09:14 patient reports pain is pretty well gone. He therefore wishes to be discharged home and he is to call his for a ride. Discharge paperwork will be filled out. Departure - Departure Time of Disposition: 09:25 Disposition: Home, Self-Care 01 Condition: Fair Clinical Impression: Renal colic on left side, Constipation by delayed colonic transit - Discharge Information *PRESCRIPTION DRUG MONITORING PROGRAM REVIEWED*: Not Applicable *COPY OF PRESCRIPTION DRUG MONITORING REPORT IN PATIENT RICARDA: Not Applicable Prescriptions: polyethylene glycoL 3350 [MiraLAX] 17 gm PO DAILY #1 container oxyCODONE HCl/Acetaminophen [Percocet 10-325 mg Tablet] 1 each PO Q4H PRN #20 tablet PRN Reason: Renal colic Ondansetron [Zofran] 4 mg BUCCAL Q6H PRN #10 tab PRN Reason: nausea or vomiting Instructions: Renal Colic, [id number] Referrals: Haley Bazzi MD [Primary Care Provider] - Forms: ED Department Discharge Additional Instructions: Evaluation in the emergency room today in regards to persistent left flank and left upper abdominal pain likely related to 7 mm stone lodged in the upper or proximal left ureter. Development of diffuse periumbilical abdominal pain over the last 24 hours as well appears to be secondary to constipation with increased stool throughout the right hemicolon on x-ray exam of the abdomen. Unfortunately pain medications always cause slowdown of the bowel and constipation. You were treated with IV fluids in the ED and pain medication Dilaudid 1 mg with a antinausea medication Zofran 4 mg IV. You will need to take magnesium citrate 8 ounces of this medication mixed with 6 ounces of juice of choice by mouth once to provide bowel cleanse. It will usually start to work 1 to 3 hours after you take it this morning. It should relieve right sided and mid abdominal pain. You will need to continue Percocet tab 10/325 mg tablet every 4 -6hours as needed for pain relief. May use Zofran 4 mg under the tongue every 4-6 hours as necessary for nausea relief. Suggest starting MiraLAX powder 17 g or 1 scoop daily with juice of choice to prevent constipation while taking the pain medications for the kidney stone. This should prevent constipation from reoccurring. Sepsis Event Note (ED) - Evaluation Sepsis Screening Result: No Definite Risk - Focused Exam Vital Signs: Vital Signs Temp Pulse Resp BP Pulse Ox 09/23/20 09:30 66 18 148/78 H 92 L 09/23/20 07:45 36.4 C 69 19 165/88 H 93 L - My Orders Last 24 Hours: My Active Orders 09/23/20 08:00 Sodium Chloride 0.9% [Normal Saline] 1,000 ml IV ASDIRECTED - Assessment/Plan Last 24 Hours: My Active Orders 09/23/20 08:00 Sodium Chloride 0.9% [Normal Saline] 1,000 ml IV ASDIRECTED
[2020-09-23] MEDS ORDERED: Sodium Chloride 0.9% 1,000 ML IV SCH (08:00)
[2020-09-23] MEDS ORDERED: Magnesium Citrate Solution 296 ML Bottle PO ONE (08:57)
--- NOTE | 2020-09-23 09:24 | CR ---
PROCEDURE INFORMATION: Exam: XR Abdomen, 1 View Exam date and time: 09/23/2020 8:06 AM Age: 65 years old Clinical indication: Abdominal pain; Localized; Lower; Patient HX: No bm x 4 days. M lt proximal renal stone diagnosed 2 days ago TECHNIQUE: Imaging protocol: XR of the abdomen. Views: Frontal supine view of the abdomen. 1 View. COMPARISON: CT Abdomen Pelvis wo Cont 09/21/2020 6:17 PM FINDINGS: Lungs: The lung bases are clear. Gastrointestinal tract: Unobstructed. No bowel wall thickening or pneumatosis. Intraperitoneal space: No ascites or pneumoperitoneum. Organs: No organomegaly. No uroliths. Vasculature: There are 2 pelvic phleboliths. Soft tissues: 1.1 cm calculus projecting at the level of the left L3 transverse process and compatible with a proximal left ureteral calculus. No other ureterolith. IMPRESSION: Left ureterolith at the L3 level measuring up to 1.1 cm. This does not appear changed in position with comparison to the recent CT study. Otherwise, normal. Thank you for allowing us to participate in the care of your patient. Dictated and Authenticated by: Emory White MD 09/23/2020 9:27 AM Central Time ([place] & [place]) [email or web address]
[2020-09-23 09:37] VITALS: BP 148/78; PULSE 66
== END 2020-09-23 09:30 | disposition home or self-care (01) ==
LOC: JD.ED 07:29
DX: K59.01 Slow transit constipation (principal); E78.00 Pure hypercholesterolemia, unspecified; I10 Essential (primary) hypertension; M10.9 Gout, unspecified; F41.9 Anxiety disorder, unspecified; F32.9 Major depressive disorder, single episode, unspecified; Z79.899 Other long term (current) drug therapy
CPT/HCPCS: 74018; 96374; 96375; 99284; A9270; J1170; J2405; J7030